=== PATIENT | male | born 1945 | race Caucasian/White ===

== ENCOUNTER 2017-06-30 10:12 | Emergency (ER) | payer MEDICARE ==
[~2017-06-30] VITALS: Ht 167.6 cm; Wt 69.9 kg
[~2017-06-30 10:12] MED LIST: ESTER-C 1,0001 EACH PO; IPRAT-ALBUT 0.5-3 ML INH; MELATONIN5 M2 PO; MELOXICAM15 MG PO; NORCO 5-325 TA1 EACH PO; PREDNISONE20 MG PO; ROBITUSSIN NIG118 ML PO; SUPER ANTIOXID1 EACH PO; VENTOLIN HFA18 GM INH; ZITHROMAX250 MG PO
[2017-06-30] MEDS ORDERED: FLOMAX0.4 MG PO (11:43)
== END 2017-06-30 12:00 | disposition home or self-care (01) ==
LOC: ED 10:12
PROC: 4A0D7LZ Measurement of Urinary Volume, Via Natural or Artificial Opening (ICD-10-PCS; principal; 2017-06-30)
PROC: 0T9B70Z Drainage of Bladder with Drainage Device, Via Natural or Artificial Opening (ICD-10-PCS; 2017-06-30)
DX: R33.9 Retention of urine, unspecified (principal); J44.9 Chronic obstructive pulmonary disease, unspecified; F17.200 Nicotine dependence, unspecified, uncomplicated
CPT/HCPCS: 51702; 51798; 80053; 81001; 99284

== ENCOUNTER → 2017-07-01 | Emergency (ER) | payer MEDICARE ==
[~2017-07-01] VITALS: Ht 167.6 cm; Wt 69.9 kg
[~2017-07-01] MED LIST changes: +CEPHALEXIN500 MG PO; +FLOMAX0.4 MG PO
== END ==
LOC: ED 22:11
DX: T83.091A Other mechanical complication of indwelling urethral catheter, initial encounter (principal); F32.9 Major depressive disorder, single episode, unspecified; J44.9 Chronic obstructive pulmonary disease, unspecified; F17.200 Nicotine dependence, unspecified, uncomplicated; Z79.899 Other long term (current) drug therapy
CPT/HCPCS: 81001; 99283

== ENCOUNTER 2017-07-09 17:32 | Inpatient (IN) | payer MEDICARE ==
[~2017-07-09] VITALS: Ht 170.2 cm; Wt 67.1 kg
--- NOTE | ~2017-07-09 | EKG ---
[facility] [address] [facility] [place], [place] [address] Draft EK completed, results pending confirmation PATIENT NAME: ANTONIO VALENCIA TERRI Electrocardiogram DATE OF : 41 PHYSICIAN: PRELIMINARY REPORT #: [id number] REPORT IS CONFIDENTIAL AND NOT TO BE RELEASED WITHOUT AUTHORIZATION
[~2017-07-09 17:32] MED LIST changes: -CEPHALEXIN500 MG PO
--- NOTE | 2017-07-09 21:30 | NUR ---
PT SHIFT REPORT. THIS RN AND OTHER RN WENT TO ED TO TRNASFER PT TO FLOOR VIA STRETCH. PT TRANSFER TO ROOM 128. PT PLACED BACK ON 2L NC. PT USES NEB TREATMENTS AT HOME. FAMILY WILL BE BACK SHORTLY.
--- NOTE | 2017-07-09 22:00 | NUR ---
PT ADMITTED ALL QUESTIONS ANSWERED BY PT AND PT DAUGHTER. PT RESTING IN BED. ON FLOOR UPDATED OF BLOOD PRESSURES. ORDER FOR LEVAPHED IF NEEDED FOR MAP LESS THAN 60. [facility] ASSESSMENT COMPLETED. PT LUNGS CLEAR AND WHEEZE PRESENT IN LEFT LOWER LUNG REGION. RT IN TO GIVE NEB TREATMENT. BOWEL TONES ACTIVE. PT HAD BM YESTERDAY. PT PRESENTED WITH SOMERS PRESENT IN ED. ED STAFF REMOVED OLD SOMERS AND REPLACED WITH A NEW DEVICE. AWARE OF URINE OUT.
--- NOTE | 2017-07-09 23:28 | NUR ---
PT REQUESTED TV OFF AND TIMES OUT TO GO TO SLEEP. PT BED ALARM ON D/T PREVIOUS FORGETFULLNESS OF SITUATION/TIME. CALL LIGHT IN HAND. FAMILY WILL STAY AT BEDSIDE TONIGHT.
--- NOTE | 2017-07-10 | NUR ---
PT RESTING IN BED. PT BED ALARM ON FOR PT SAFETY. PT RESTING AT THIS TIME. WILL CONTINUE TO CLOSELY MONITOR.
--- NOTE | 2017-07-10 02:30 | NUR ---
PT WOKE. READJUSTED IN BED. PT ORIENT TO PLACE. TEMP TAKEN ORAL AND TEMPORAL <100.0. PT FEELS WARM AND DOES NOT WANT ANY BLANKETS. PT IS DIAPHRETIC. PT GRIMACING IN THE FACE. GAVE PRN TYLENOL FOR GENERAL ACHES AND PAINS AND LOW GRADE TEMP. PT TOLERATED WELL. URINE OUTPUT IS ADEQUATE AT THIS TIME. PT LUNGS CLEAR THROUGHOUT. PT REMAINS ON 2L NC WITH SPO2 93-98%. WILL CONTINUE TO CLOSELY MONITOR.
--- NOTE | 2017-07-10 04:07 | NUR ---
PT BENDING ARM WITH SLEEPING. CHANGED IV FLUIDS TO OTHER SIGHT. NO OTHER ISSUES AT THIS TIME. BED ALARM ON. CALL LIGHT IN HAND. FAMILY PRESENT. WILL CONTINUE TO MONITOR.
--- NOTE | 2017-07-10 06:34 | EKG ---
[facility] [address] [facility] [place] [id number] Signed Normal sinus rhythm Nonspecific ST abnormality Abnormal ECG When compared with ECG of 09-JUL-2017 19:47, (Unconfirmed) premature atrial complexes are no longer present Left posterior fascicular block is no longer present Minimal criteria for Inferior infarct are no longer present Nonspecific T wave abnormality no longer evident in Inferior leads Confirmed by MAR DAVID MD ([id number]) on 07/10/2017 6:34:11 AM Electronically Signed By: MAR DAVID MD 07/10/17 0634 PATIENT NAME: ANTONIO VALENCIA Electrocardiogram DATE OF : 41 PHYSICIAN: MAR DAVID MD REPORT #: [id number] REPORT IS CONFIDENTIAL AND NOT TO BE RELEASED WITHOUT AUTHORIZATION
--- NOTE | 2017-07-10 06:45 | NUR ---
pt assisted up to bedside cammode with 2 rn assist. pt had med loose bm in bed. pt cleaned new gown placed. pt sob with getting up to cammode with audible wheeze.
--- NOTE | 2017-07-10 07:00 | NUR ---
IN TO SEE PT. MD NOTED PT'S CHILLS AND WHEEZING. CALLED RT FOR A PRN NEB. PT WRAPPED IN WARM BLANKETS AT THIS TIME. PT TEMP IS 98.3 ORALLY CURRENTLY. PT REMAINS ON 2L NC WITH SPO2 95-100%. PT RR UP TO 35-40 WITH CHILLS. FAMILY AT BEDSIDE. WILL CONTINUE TO CLOSELY MONITOR.
--- NOTE | 2017-07-10 07:26 | NUR ---
RT CALLED TO GIVE NEB TX D/T WHEEZING. PT CHILLING AND SHAKING, ORAL TEMP 98.3, WARM BLANKETS GIVEN. R.T. CALLED A SECOND TIME BUT NEB GIVEN BY RN VIA MASK. PT RESP 40, HR 130, SATS 95% ON 2L PER NC. DR. COTTON NOTIFIED.
--- NOTE | 2017-07-10 07:36 | NUR ---
TYLENOL 650 MG GIVEN PO CRUSHED IN APPLE SAUCE. PT STILL CHILLING RESP 39 AND HR 126. DAUGHTER AT BEDSIDE.
--- NOTE | 2017-07-10 08:08 | NUR ---
PT UP TO BSC WITH 2 PERSON ASSIST. HAD MED LIQ BROWN, THICK STOOL AND RETURNED TO BED. CHILLING HAS DECREASED AND WHEEZING ALSO DECREASED. PT MORE ALERT AND TALKING WITH FAMILYL MEMBERS. PT ABLE TO TAKE A.M. MEDS WITHOUT PROBLEMS. PT DRINKING WATER WITHOUT PROBLEMS.
--- NOTE | 2017-07-10 09:05 | NUR ---
PT EATING CLEAR LIQ DIET WITHOUT PROBLEMS. PT AWAKE AND TALKING WITH FAMILY MEMEBERS. TEMP NOW 100.6 TEMPORAL.
--- NOTE | 2017-07-10 10:00 | NUR ---
SOMERS EMPTIED OF 47 MLS ARTEMIO URINE. R.T. HERE FOR NEB TX PER PT REQUEST.
--- NOTE | 2017-07-10 10:57 | NUR ---
PT SLEEPING WITH RESP 25. HR 93 BP 104/59 MAP 70. UO 47 MLS FOR THE LAST HOUR. FAMILY AT BEDSIDE.
--- NOTE | 2017-07-10 11:58 | NUR ---
PT SLEEPING WITH REU. SOMERS EMPTIED OF 125 MLS OF CLEAR YELLOW URINE. ASSESSMENT COMPLETED AND PT AWAKENS TO TOUCH. GOWN WET FROM FEVER BREAKING. TEMP NOW 98.8 TEMPORAL. FAMILY REMAINS IN ROOM.
--- NOTE | 2017-07-10 12:50 | NUR ---
PT UP TO BSC WITH ONE PERSON ASSIST. HAD SMALL SOFT BROWN BM AND PASSED FLATUS. PT BACK TO BED AND EATING CLEAR LIQ DIET.
--- NOTE | 2017-07-10 14:00 | NUR ---
I/O COMPLETED. DR. COTTON HERE TO CHECK ON PT PROGRESS.
--- NOTE | 2017-07-10 14:31 | NUR ---
REPORT RECEIVED VIA TELEPHONE FROM MARTA ABREU. ALL QUESTIONS ANSWERED.
--- NOTE | 2017-07-10 15:29 | NUR ---
PT TRANSFERRED TO ROOM 110 AT 1520. DAUGHTER, CHARITY, AT BEDSIDE. PT COMFORTABE NOW. CEFEPIME INFUSING WITH NS IVF. NO COMPLAINTS NOW. PT WATCHING TELEVISION.
--- NOTE | 2017-07-10 16:26 | NUR ---
PATIENT IN BED, FAMILY MEMBER IN ROOM. PATIENT DOES NOT NEED ANYTHING AT THIS TIME.
--- NOTE | 2017-07-10 17:54 | NUR ---
1PA TO BSC. TRANSFERRED FROM CCU. YONIS GONZALEZ. CHANGED 07/09 ON ADMIT. 2L 02 VIA DC. FEVER 100.8 THIS MORNING AT 0900-- AFEBRILE REST OF DAY. DIARRHEA THIS MORNING. NS @ 125. CEFEPIME. PT/OT TO START TOMORROW. TELE [address] CLEAR LIQUID DIET. TYLENOL X1 AT 0730. DAUGHTER, CHARITY, AT BEDSIDE. BP SOFT. KEEP MAP >60.
--- NOTE | 2017-07-10 19:05 | NUR ---
SHIFT ASSESSMENT COMPLETE. PATIENT RESTING IN BED. PATIENT'S DAUGHTER AT BEDSIDE. DENIES NEEDS AT THIS TIME. CALL LIGHT IN REACH.
--- NOTE | 2017-07-10 20:00 | NUR ---
EVENING IV ABX PROVIDED PER ORDERS. IVF INFUSING, SITE WNL. PATIENT IS AAOX3. LUNGS SOUNDS HAVE EXPIRTORY WHEEZE THROUGHOUT. PATIENT ON 2L NC WITH O2 >95%. PATIENT DENIES NAUSEA, PAIN, OR DIZZINESS. ABD IS SOFT AND NONTENDER. BOWEL SOUNDS ACTIVE. SOMERS IN PLACE. URINE OUTPUT QS, STRAW COLORED WITH NO SEDIMENT. NO EDEMA NOTED IN LOWER EXTREMITIES. ROLL CONTOUR GRINDER INTACT. PATIENT WALKED TO THE BATHROOM FOR A BOWEL MOVEMENT, SBA. PATIENT APPEARS STEADY ON HIS FEET. FAMILY IS AT BEDSIDE. NO FURTHER NEEDS AT THIS TIME.
--- NOTE | 2017-07-10 20:30 | NUR ---
RT TITRATED PATIENT TO ROOM AIR. O2 SATS CONTINUE TO BE GREATER THAN 92% AT THIS TIME. WILL CONTINUE TO MONITOR.
--- NOTE | 2017-07-10 22:27 | NUR ---
FAMILY HAS LEFT THE ROOM. PATIENT DENIES NEEDS AT THIS TIME. PATIENT IS AAOX3. BED ALARM ACTIVATED. CALL LIGHT IN REACH. TELE HR 88, NEW BATTERY PLACED.
--- NOTE | 2017-07-10 23:19 | NUR ---
RT CHECKED PATIENTS O2 SAT, 94% ON RA.
--- NOTE | 2017-07-11 02:12 | NUR ---
PATIENT UP TO THE BATHROOM. SBA, PATIENT IS SLIGHTLY UNSTEADY. DENIES PAIN AND NAUSEA. PATIENT HAD SOME FLATULUS AND SMALL AMOUNT OF LOOSE STOOL. IVF INFUSING, SITE WNL. SOMERS DRAINED, URINE IS ARTEMIO COLORED WITHOUT SEDIMENT. PATIENT IS AAOX3. BACK IN BED. CALL LIGHT IN REACH.
--- NOTE | 2017-07-11 03:58 | NUR ---
IV ABX ADMINISTERED PER ORDERS. PATIENT RESTING IN BED. EYES CLOSED. RR 16.
--- NOTE | 2017-07-11 05:10 | NUR ---
PATIENT RESTED WELL THORUGHOUT THE NIGHT. AAOX3. CALLS APPROPRIATELY. PATIENT TITRATED TO RA. IVF INFUSING, SITE WNL. SOMERS IN PLACE, OUTPUT QS. BM X1. PATIENT REMAINS AFEBRILE. TOLERATING CLEAR LIQUIDS. 1PA W/FWW.
--- NOTE | 2017-07-11 06:05 | NUR ---
PATIENT RESTING IN BED. MORNING VITALS COMPLETE, WNL. O2 IS 90% ON RA. ENCOURAGED PATIENT TO TURN COUGH AND DEEP BREATH. PATIENT DENIES NEEDS AT THIS TIME. SOMERS DRAINING, OUTPUT QS. PATIENT IS AAOX3, TAKES A FEW MOMENTS TO FIND THE WORDS HE IS LOOKING FOR.
--- NOTE | 2017-07-11 07:00 | NUR ---
BEDSIDE REPORT RECEIVED FROM LOIS FLORES. PT AWAKE IN BED, DROWSY. IV CEFEPIME AND FLUIDS INFUSING IN RIGHT FOREARM WNL. PT HAS NO REQUESTS AT THIS TIME, BACK TO SLEEP. CALL LIGHT IS NEXT TO PT.
--- NOTE | 2017-07-11 08:45 | NUR ---
PATIENT RESTING IN BED. HANDS AND FACE WASHED. PATIENT WOULD LIKE TO SHOWER LATER TODAY.
--- NOTE | 2017-07-11 09:20 | NUR ---
ASSISTED PT BACK TO BED FROM RESTROOM. PT HAD SMALL BM, LOOSE. BLODDY DISCHARGE NOTED FROM CATHETER INSERTION. PROVIDED CATHETER CARE WITH RAG AND SOAPY WARM WATER. STAT LOCK REPLACED. PT BACK IN BED, IVF INFUSING. CALL LIGHT IN REACH.
--- NOTE | 2017-07-11 09:30 | NUR ---
PT MORNING ASSESSMENT COMPLETE. PT HAS SOME TENDERNESS AT CATHETER INSERTION SITE, SCANT SEROSANGUINOUS DISCHARGE FROM SITE. PT GOWN CHANGED. PT HAS EXPIRATORY WHEEZES NOTED THROUGHOUT ALL LOBES, CLEAR ON INSPIRATION. PT ON ROOM AIR AT THIS TIME. PT DENIES PAIN. BOWEL TONES ACTIVE. PT ABLE TO EAT 100% BREAKFAST THIS MORNING, DENIES NAUSEA. IVF INFUSING. IV SITES WNL, FLUSHED BOTH IVS WITH 10 MLS NS. CALL LIGHT IN REACH.
--- NOTE | 2017-07-11 10:03 | NUR ---
PATIENT RESTING IN BED WATCHING TV. RN STATES THAT SHE HAS DONE FOEY CATH CARE ON PATIENT THIS AM. PT IN TO WORK WITH PATIENT.
--- NOTE | 2017-07-11 12:25 | NUR ---
PATIENT UP TO BATHROOM.
--- NOTE | 2017-07-11 12:25 | NUR ---
PT DISORIENTED, ATTEMPTING TO EXIT ROOM, PUSHING TRAY TABLE WITH FOOD. PT INSTRUCTED TO USE CALL LIGHT. ASSISTED PT TO RESTROOM. GLENN ANSARI PRESENT IN ROOM.
--- NOTE | 2017-07-11 13:09 | NUR ---
ASSISTED PATIENT WITH SHOWER. SOMERS CATH CARE DONE. SHAMPOO AND SHAVE DONE. PATIENT BACK TO BED RESTING WITH HIS EYES CLOSED. SINTIA BUTTON IN REACH. NO OTHER NEEDS AT THIS TIME.
--- NOTE | 2017-07-11 14:00 | NUR ---
PATIENT RESTING IN BED WITH HIS EYES CLOSED. BED ALARM ON .
--- NOTE | 2017-07-11 14:30 | NUR ---
DR. DAVID IN TO SEE PT, UPDATE ON PLAN OF CARE, CULTURES PENDING. PT IV SITE INFILTRATED ON LEFT AC. D/C'D IV SITE. PT ASSESSMENT COMPLETE. PTS LUNGS COUARSE ON INSPIRATION IN UPPER LOBES. EXPIRATORY WHEEZE EVIDENT THROUGHOUT LUNG LOBES. PT IV FLUIDS DISCONTINUED PER VERBAL ORDER BY DR. DAVID. CALL LIGHT IS IN REACH, BED ALARM SET.
--- NOTE | 2017-07-11 15:08 | NUR ---
restarted new iv per patient request. patient tolerated well. restarted antibiotic in new iv site.
--- NOTE | 2017-07-11 15:31 | NUR ---
PATIENT RESTING IN BED WATCHING TV WITH FAMILY IN ROOM. NO NEEDS AT THIS TIME.
--- NOTE | 2017-07-11 15:35 | NUR ---
PT'S DAUGHTER UPDATED ON PT PROGRESS. REQUESTED BREATHING TREATMENT FOR PT, STATES THAT PT WILL NOT REQUEST TREATMENTS. PHONE CALL TO RT ANAND MICHEL TO PROVIDE TREATMENT.
--- NOTE | 2017-07-11 16:52 | NUR ---
ASSISTED PT TO REPOSITION WITH PILLOW TO LEFT SIDE. PT DAUGHTER AT BEDSIDE, BROUGHT HER COFFEE. PT HAS NO REQUESTS AT THIS TIME. IV ANTIBIOTIC INFUSING, IV WNL. PT HAS CALL LIGHT IN REACH.
--- NOTE | 2017-07-11 17:25 | NUR ---
PATIENT SITTING STRAIGHT UP IN BED EATING DINNER. DAUGHTER IN ROOM. FRESH ICE WATER GIVEN. ENCOURAGED PATIENT TO DRINK MORE WATER. NO OTHER NEEDS AT THIS TIME.
--- NOTE | 2017-07-11 18:30 | NUR ---
ANTIBIOTIC INFUSIION COMPLETE. PT IV SALINE LOCKED, FLUSHES WNL. PT RESTING IN BED, STATING HE'S TIRED. CALL LIGHT IN REACH. BED ALARM SET.
--- NOTE | 2017-07-11 18:36 | NUR ---
PT WORKED WITH PHYSICAL THERAPY THIS SHIFT. PT AMBULATING WELL WITH SBA. PT HAD SHOWER THIS MORNING. PT RECEIVED NEW IV IN RIGHT FOREARM, FLUIDS DISCONTINUED. PT CONTINUES TO RECEIVE IV ANTIBIOTICS PENDING CULTURES. PT HAS HAD PERIODS OF CONFUSION, GOT UP WITHOUT CALLING, NOT ORIENTED TO SURROUNDINGS. PT CONSISTENTLY ANSWERS ORIENTATION QUESTIONS CORRECTLY, PERSON PLACE, TIME. PT DAUGHTER PRESENT IN ROOM THIS AFTERNOON. PT RECEIVED NEBULIZER X 1 AND CONTINUES TO HAVE EXPIRATORY WHEEZES THROUGHOUT ALL LOBES.
--- NOTE | 2017-07-11 19:05 | NUR ---
SHIFT REPORT RECIEVED. PATIENT RESTING IN BED. FAMILY HAS STEPPED OUT OF THE ROOM. PATIENT DENIES NEEDS AT THIS TIME. BED ALARM ON. CALL LIGHT IN REACH.
--- NOTE | 2017-07-11 19:54 | NUR ---
EVENING MEDS GIVEN PER ORDER. PATIENT ASSESSMENT COMPLETE. PATIENT IS AAOX3 BUT TAKES A FEW MINS TO REMEMBER THE NAMES OF CERTAIN THINGS. LUNGS ARE COARSE THROUGOUT AND EXPIRTORY WHEEZE HEARD THROUGHOUT. RT CONTACTED FOR PRN DAVID TREATMENT. PATIENT DENIES PAIN OR NAUSEA. SOMERS IS DRAINGING CLEAR YELLOW URINE. BED ALARM ON. CALL LIGHT IN REACH. PATIENT REPORTS BEING TIRED FROM WORKING WITH PT TODAY. IV ABX INFUSING, SITE WNL.
--- NOTE | 2017-07-11 20:45 | NUR ---
PATIENT UP TO THE BATHROOM, ATTEMPTED TO GET OUT OF BED WITHOUT USING CALL LIGHT. BED ALARM ALERTED STAFF. HUMAN SERVICES PROFESSIONAL ASSISTED PATIENT. BED ALARM ON WHEN HUMAN SERVICES PROFESSIONAL LEFT THE ROOM.
--- NOTE | 2017-07-11 21:01 | NUR ---
PATIENT IS RESTING WITH EYES CLOSED. APPEARS COMFORTABLE. FAMILY IN ROOM. DENY NEEDS AT THIS TIME. HOSPICE TRAY REFILLED WITH FRESH WATER AND SOME SNACKS. ENCOURAGED FAMILY TO ALERT STAFF TO ANY NEEDS THEY HAVE OR CONCERNS.
--- NOTE | 2017-07-11 22:20 | NUR ---
PATIENT RESTING IN BED. CALL LIGHT IN REACH. FAMILY AT BEDSIDE. CALL LIGHT ON.
--- NOTE | 2017-07-12 00:28 | NUR ---
REPOSITIONED PATINET. PATIENT DENIES PAIN OR NEEDS AT THIS TIME. FAMILY IN ROOM. IV ABX HAVE FINISHED. PATIENT IS SL.
--- NOTE | 2017-07-12 02:30 | NUR ---
PATIENT RESTING IN BED. SOMERS WAS DRAINED. URINE IS CLEAR YELLOW, OUTPUT QS. DISCUSSED SOME DISCHARGE INSTRUCTIONS WITH PATIENT'S DAUGHTER CONCERNING CATH CARE AND CONSIDERATIONS. DAUGHTER IS CONCERNED ABOUT THE PATIENT GOING HOME WHILE HE IS STILL WEAK. SHE STATES SHE LIVES IN THE HOME BUT IS GONE FREQUENTLY AND HAS A ROOMMATE THAT LIVES IN THE HOME WELL TO ASSIST. SOME QUESTIONS WERE WRITTEN ON THE WHITE BOARD TO FOLLOW UP WITH THE MD IN THE MORNING. WILL PASS THIS ALONG TO DAY SHIFT.
--- NOTE | 2017-07-12 04:35 | NUR ---
IV ABX ADMINISTERED PER ORDERS, SITE WNL. PATIENT IS RESTING WITH EYES CLOSED, RR 18. FAMILY IS IN ROOM. CALL LIGHT IN REACH.
--- NOTE | 2017-07-12 04:55 | NUR ---
PATIENT RESTED WELL THROUGHOUT THE NIGHT. DAUGHTER IS AT BEDSIDE. SOMERS CARE PROVIDED. SBA TO THE BATHROOM. PATIENT IS DROWSEY TONIGHT BUT ORIENTED X4. SLOW TO ANSWER QUESTIONS AND FORGETFUL AT TIMES. BED ALARM IN USE.
--- NOTE | 2017-07-12 06:42 | NUR ---
PATIENTS DAUGHTER REQUEST PATIENT RECIEVE PRN NEBS. RT NOTIFIED AND PROVIDED TREATMENT. NEW TELE BATTERY PLACED. PATIENT RESTING, EYES CLOSED. AROUSES TO VOICE AND DENIES NEEDS.
[2017-07-12] MEDS ORDERED: CEPHALEXIN500 MG PO (07:33)
--- NOTE | 2017-07-12 08:53 | NUR ---
IV REMOVED D/T DISCHARGE. DAUGHTER AT BEDSIDE. TOOK MEDS ORDERED. REFUSED FLU VACCINE. ANTICIPATE DISCHARGE BY 1030AM.
--- NOTE | 2017-07-12 09:14 | NUR ---
PATIENT TOOK A SHOWER. NOW EATING BREAKFAST.
== END 2017-07-12 10:50 | disposition home or self-care (01) | DRG 698 ==
LOC: ED 17:32 → CCU 20:45 → MS 07-10 15:21
PROVIDERS: ADMIT Internal Medicine
PROC: 3E0234Z Introduction of Serum, Toxoid and Vaccine into Muscle, Percutaneous Approach (ICD-10-PCS; principal; 2017-07-12)
DX: T83.511A Infection and inflammatory reaction due to indwelling urethral catheter, initial encounter (principal); A41.9 Sepsis, unspecified organism; G93.41 Metabolic encephalopathy; Y84.6 Urinary catheterization as the cause of abnormal reaction of the patient, or of later complication, without mention of misadventure at the time of the procedure; J44.9 Chronic obstructive pulmonary disease, unspecified; N13.9 Obstructive and reflux uropathy, unspecified; B96.20 Unspecified Escherichia coli [E. coli] as the cause of diseases classified elsewhere; F17.200 Nicotine dependence, unspecified, uncomplicated; Z23 Encounter for immunization
CPT/HCPCS: 36415; 71010; 80048; 80053; 81001; 83605; 83690; 85025; 87040; 87077; 87088; 87186; 93005; 93010; 94640; 97116; 97161; 97165; J0692; J7030

== ENCOUNTER 2017-07-15 13:36 | Emergency (ER) | payer MEDICARE ==
[~2017-07-15] VITALS: Ht 170.2 cm; Wt 67.1 kg
[~2017-07-15 13:36] MED LIST changes: +CEPHALEXIN500 MG PO
== END 2017-07-15 16:01 | disposition home or self-care (01) ==
LOC: ED 13:36
DX: R31.9 Hematuria, unspecified (principal); R33.9 Retention of urine, unspecified; F32.9 Major depressive disorder, single episode, unspecified; J44.9 Chronic obstructive pulmonary disease, unspecified; Z87.891 Personal history of nicotine dependence; Z98.890 Other specified postprocedural states; Z79.899 Other long term (current) drug therapy; Z79.2 Long term (current) use of antibiotics
CPT/HCPCS: 81001; 84153; 99283

== ENCOUNTER 2017-10-05 10:08 | Emergency (ER) | payer MEDICARE ==
[~2017-10-05] VITALS: Ht 170.2 cm; Wt 67.1 kg
== END 2017-10-05 12:05 | disposition home or self-care (01) ==
LOC: ED 10:08
DX: T83.038A Leakage of other urinary catheter, initial encounter (principal); F17.200 Nicotine dependence, unspecified, uncomplicated; Z79.899 Other long term (current) drug therapy
CPT/HCPCS: 99282